=== PATIENT | male | born 1950 | race Caucasian/White ===

== ENCOUNTER → 2021-03-06 | Outpatient (CLI) | payer MEDICARE, OTHER ==
--- NOTE | 2021-03-06 13:02 | RAD ---
CT LOW DOSE LUNG SCREEN History: Smoking history. Screening. Technique: Noncontrast CT of the chest was performed. Coronal and sagittal reconstructions were perfo rmed. Exposure: One or more of the following individualized dose reduction techniques were utilized for thi s examination: 1. Automated exposure control 2. Adjustment of the mA and/or kV according to patient size 3. Use of iterative reconstruction technique. Comparison: None Findings: Chest: No pathologic lymphadenopathy. Mild atheromatous plaque within the aortic arch. No consolidati on or pleural effusion. No pneumothorax. Normal heart size. Upper abdomen: The imaged upper abdomen is unremarkable. Bones: DISH changes of the thoracic spine. Moderate multilevel thoracic spondylosis with posterior ca lcified disc protrusions. Multilevel canal narrowing most prominent T9-T10 and T10-T11. Impression: 1. No significant pulmonary nodules. Lung RADS 1. Recommend continued annual low-dose screening CT c hest without contrast. 2. Moderate thoracic spondylosis with multilevel canal narrowing. Electronically signed by: Deshaun Fischer DO (03/06/2021 1:00 PM) JEFERSON
== END ==
LOC: CT 10:50
PROVIDERS: ATTEND Family Medicine
DX: I70.0 Atherosclerosis of aorta (principal); F17.210 Nicotine dependence, cigarettes, uncomplicated; M47.814 Spondylosis without myelopathy or radiculopathy, thoracic region; M48.04 Spinal stenosis, thoracic region; M51.34 Other intervertebral disc degeneration, thoracic region; M48.14 Ankylosing hyperostosis [Forestier], thoracic region
CPT/HCPCS: 71271